=== PATIENT | male | born 1990 ===

== ENCOUNTER 2021-02-13 09:14 | Emergency (ER) | payer SELFPAY ==
[2021-02-13 09:21] VITALS: BP 138/85
[2021-02-13] MEDS ORDERED: IBUPROFEN 800 MG TAB PO STA (10:55)
--- NOTE | 2021-02-13 11:05 | Emergency Department Report ---
ED General Adult HPI - General Chief complaint: Sore Throat Stated complaint: SORE THROAT AND CUT TO CUT ON LT FOOT Time Seen by Provider: 02/13/21 09:57 Source: patient, lead software engineer Mode of arrival: Ambulatory Limitations: Language Barrier - History of Present Illness Initial comments: 30-year-old male patient presents with complaints of sore throat x3 days and left heel wound x15 days. Patient states his throat pain worsens with swallowing and rates it as 8/10 in severity. He denies any cough or fever/chills/sweats. No history of recurrent strep or chest pain per patient. Patient reports he had a blister on his left heel that occurred from his shoe rubbing against it that turned into a scab that now has been mildly hurting for the past few days. He states there has been some redness but denies any purulent drainage or difficulty moving his foot. No past medical history per patient. Severity scale (0 -10): 0 - Related Data Previous Rx's Medication Instructions Recorded Last Taken Type Clindamycin [Clindamycin CAP] 300 mg PO Q8H 10 Days #30 cap 02/13/21 Unknown Rx Ibuprofen [Motrin 800 MG tab] 800 mg PO Q8HR PRN #20 tablet 02/13/21 Unknown Rx Mupirocin [Bactroban 2% OINT] 1 applic TP TID 10 Days #1 tube 02/13/21 Unknown Rx Allergies Allergy/AdvReac Type Severity Reaction Status Date / Time No Known Allergies Allergy Unverified 02/13/21 09:21 ED Review of Systems ROS: Stated complaint: SORE THROAT AND CUT TO CUT ON LT FOOT Other details as noted in HPI Constitutional: denies: chills, fever, malaise, weakness Respiratory: denies: cough Cardiovascular: denies: chest pain Musculoskeletal: denies: joint swelling, arthralgia Skin: denies: rash Hematological/Lymphatic: denies: swollen glands ED Past Medical Hx - Past Medical History Previous Medical History?: No - Surgical History Past Surgical History?: No - Medications Home Medications: Home Medications Medication Instructions Recorded Confirmed Last Taken Type Clindamycin [Clindamycin CAP] 300 mg PO Q8H 10 Days #30 cap 02/13/21 Unknown Rx Ibuprofen [Motrin 800 MG tab] 800 mg PO Q8HR PRN #20 tablet 02/13/21 Unknown Rx Mupirocin [Bactroban 2% OINT] 1 applic TP TID 10 Days #1 tube 02/13/21 Unknown Rx ED Physical Exam - General Limitations: Language Barrier General appearance: alert, in no apparent distress - Head Head exam: Present: atraumatic, normocephalic - Eye Eye exam: Present: normal appearance - Expanded ENT Exam Expanded Mouth exam: Absent: drooling, trismus, muffled voice Throat exam: Positive: tonsillar erythema (Bilateral), tonsillomegaly (2+ bilateral), tonsillar exudate (Bilateral), other (Uvula is midline). Negative: R peritonsillar mass, L peritonsillar mass - Neck Neck exam: Present: normal inspection, lymphadenopathy (Mild anterior cervical with tenderness to palpation) - Respiratory Respiratory exam: Present: normal lung sounds bilaterally. Absent: respiratory distress - Cardiovascular Cardiovascular Exam: Present: regular rate, normal rhythm - Neurological Exam Neurological exam: Present: alert, oriented X3, normal gait - Psychiatric Psychiatric exam: Present: normal affect, normal mood - Skin Skin exam: Present: warm, dry, other (Approximately 3 to 4 cm rash noted to posterior left heel with mild tenderness to palpation and mild erythema; no cellulitic changes noted or purulent drainage when palpated) ED Course Vital Signs 02/13/21 09:20 Temperature 98.8 F Pulse Rate 83 Respiratory 16 Rate Blood Pressure 138/85 [Right] O2 Sat by Pulse 99 Oximetry ED Medical Decision Making - Medical Decision Making 30-year-old male patient presents with complaints of sore throat x3 days and left heel wound x15 days. Patient states his throat pain worsens with swallowing and rates it as 8/10 in severity. He denies any cough or fever/chills/sweats. No history of recurrent strep or chest pain per patient. Patient reports he had a blister on his left heel that occurred from his shoe rubbing against it that turned into a scab that now has been mildly hurting for the past few days. He states there has been some redness but denies any purulent drainage or difficulty moving his foot. No past medical history per patient. Rapid strep is positive. Will cover for both strep and foot infection with clindamycin. Mupirocin topically also prescribed. Recommend follow-up for recheck of wound in 4 to 5 days with PCP. Discussed in detail signs and symptoms that should prompt immediate return to the ED with patient who verbalizes understanding. Critical care attestation.: If time is entered above; I have spent that time in minutes in the direct care of this critically ill patient, excluding procedure time. ED Disposition Clinical Impression: Strep pharyngitis, Wound infection Disposition: HOME / SELF CARE / HOMELESS Is pt being admited?: No Condition: Stable Instructions: Strep Throat, Adult, [id number], Wound Infection Additional Instructions: After taking the antibiotics for 24 hours, you are no longer contagious. At this point, you will need to throw away your toothbrush and get a new one and wash her pillowcases in your sheets so you do not reinfect yourself. Prescriptions: Mupirocin [Bactroban 2% OINT] 1 applic TP TID 10 Days #1 tube Clindamycin [Clindamycin CAP] 300 mg PO Q8H 10 Days #30 cap Ibuprofen [Motrin 800 MG tab] 800 mg PO Q8HR PRN #20 tablet PRN Reason: pain Referrals: [facility] [Provider Group] - 3-5 Days [facility] [Provider Group] - 3-5 Days Forms: Work/School Release Form(ED), Accompanied Note Print Language: GREEK
== END 2021-02-13 11:24 | disposition home or self-care (01) ==
LOC: ED 09:14
DX: J02.0 Streptococcal pharyngitis (principal); T81.49XA Infection following a procedure, other surgical site, initial encounter
CPT/HCPCS: 87430; 99283